=== PATIENT | male | born 1970 | race Asian ===

== ENCOUNTER 2021-05-25 09:11 | Emergency (ER) | payer MEDICAID ==
[~2021-05-25] VITALS: Ht 175.3 cm; Wt 74.8 kg
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
--- NOTE | 2021-05-25 09:34 | NUR ---
RN ADVANCED AT THE BEDSIDE
[2021-05-25] MEDS ORDERED: IBUP-1955 PO (09:45)
--- NOTE | 2021-05-25 09:52 | NUR ---
Patient discharged to home in stable condition. Written and verbal after care instructions given. Patient verbalizes understanding of instruction.
[2021-05-25 09:53] VITALS: BP 156/102
== END 2021-05-25 09:53 | disposition home or self-care (01) ==
LOC: ER 09:19
DX: S43.101A Unspecified dislocation of right acromioclavicular joint, initial encounter (principal); J45.909 Unspecified asthma, uncomplicated; V19.88XA Pedal cyclist (driver) (passenger) injured in other specified transport accidents, initial encounter; Y93.89 Activity, other specified; Y92.89 Other specified places as the place of occurrence of the external cause; Y99.8 Other external cause status
CPT/HCPCS: 73030-TC